=== PATIENT | male | born 1985 | race African-American/Black ===

== ENCOUNTER 2019-01-06 08:34 | Emergency (ER) | payer MEDICAID ==
[~2019-01-06] VITALS: Ht 180.3 cm; Wt 103.0 kg
[2019-01-06 10:47] LABS: BASOPHILS % 0.3 % (0.0-2.0); EOSINOPHILS % 1.9 % (0.0-5.0); HEMATOCRIT. 45.4 % (42.0-52.0); HEMOGLOBIN. 15.3 g/dL (14.0-18.0); LYMPHOCYTES % 18.4 % (20.0-50.0); MEAN CORPUSCULAR HEMOGLOBIN 31.5 pg (28.0-32.0); MEAN CORPUSCULAR VOLUME 93.2 fL (80.0-94.0); MEAN PLATELET VOLUME 8.5 fl (7.4-10.4); MONOCYTES % 9.6 % (2.0-8.0); NEUTROPHILS % 69.8 % (40.0-76.0); PLATELET 190 x1000/uL (130-400); RED BLOOD CELL COUNT 4.87 mill/uL (4.7-6.1); RED CELL DISTRIBUTION WIDTH 14.4 % (11.6-14.6)
[2019-01-06 11:57] LABS: CHLORIDE 104 mEq/L (98-107)
[2019-01-06 12:00] VITALS: BP 133/73
== END 2019-01-06 12:38 | disposition home or self-care (01) ==
LOC: ER 08:34
DX: R60.0 Localized edema (principal)
CPT/HCPCS: 36415; 71045; 80053; 83880; 84484; 85025; 93005; 93970; 99284; Z7610

== ENCOUNTER 2019-06-08 07:48 | Emergency (ER) | payer MEDICAID ==
[~2019-06-08] VITALS: Ht 180.3 cm; Wt 108.0 kg
[2019-06-08 08:55] LABS: EOSINOPHILS % 4.5 % (0.0-5.0); HEMATOCRIT. 45.7 % (42.0-52.0); HEMOGLOBIN. 15.3 g/dL (14.0-18.0); LYMPHOCYTES % 47.9 % (20.0-50.0); MEAN CORPUSCULAR HEMOGLOBIN 30.4 pg (28.0-32.0); MEAN CORPUSCULAR VOLUME 90.9 fL (80.0-94.0); MEAN PLATELET VOLUME 8.1 fl (7.4-10.4); MONOCYTES % 10.6 % (2.0-8.0); PLATELET 196 x1000/uL (130-400); RED BLOOD CELL COUNT 5.03 mill/uL (4.7-6.1); RED CELL DISTRIBUTION WIDTH 14.3 % (11.6-14.6)
[2019-06-08 09:05] LABS: CHLORIDE 108 mEq/L (98-107)
[2019-06-08 10:37] LABS: CLARITY URINE CLEAR (CLEAR); COLOR URINE YELLOW (YELLOW); KETONES URINE NEGATIVE (NEGATIVE); LEUKOCYTE ESTERASE URINE NEGATIVE (NEGATIVE); NITRITE URINE NEGATIVE (NEGATIVE); OCCULT BLOOD URINE NEGATIVE (NEGATIVE); PH URINE 6.5 (4.5-8.0); PROTEIN URINE NEGATIVE (NEGATIVE); SPECIFIC GRAVITY URINE 1.024 (1.005-1.030); UROBILINOGEN URINE 0.2 E.U./dL (0.2-1.0)
[2019-06-08 11:23] VITALS: BP 119/64
== END 2019-06-08 11:26 | disposition home or self-care (01) ==
LOC: ER 07:56
DX: S92.421A Displaced fracture of distal phalanx of right great toe, initial encounter for closed fracture (principal); R05 Cough; R06.02 Shortness of breath; R09.81 Nasal congestion; R06.09 Other forms of dyspnea; R53.83 Other fatigue; Z82.49 Family history of ischemic heart disease and other diseases of the circulatory system; W18.39XA Other fall on same level, initial encounter; Y93.89 Activity, other specified; Y92.89 Other specified places as the place of occurrence of the external cause; Y99.8 Other external cause status
CPT/HCPCS: 36415; 71045; 73630; 80053; 81003; 83880; 84484; 84550; 85025; 87804; 93005; 99284; Z7610

== ENCOUNTER 2019-07-20 07:36 | Emergency (ER) | payer MEDICAID ==
[~2019-07-20] VITALS: Ht 180.3 cm; Wt 108.0 kg
[2019-07-20 07:41] VITALS: BP 138/79
== END 2019-07-20 11:15 | disposition left against medical advice (07) ==
LOC: ER 07:41
DX: J06.9 Acute upper respiratory infection, unspecified (principal); Z53.21 Procedure and treatment not carried out due to patient leaving prior to being seen by health care provider

== ENCOUNTER 2019-08-01 04:42 | Emergency (ER) | payer MEDICAID ==
[~2019-08-01] VITALS: Ht 180.3 cm; Wt 115.0 kg
[2019-08-01 06:52] LABS: BASOPHILS % 1.1 % (0.0-2.0); EOSINOPHILS % 3.6 % (0.0-5.0); HEMATOCRIT. 43.7 % (42.0-52.0); HEMOGLOBIN. 14.8 g/dL (14.0-18.0); LYMPHOCYTES % 49.7 % (20.0-50.0); MEAN CORPUSCULAR VOLUME 91.5 fL (80.0-94.0); MEAN PLATELET VOLUME 7.9 fl (7.4-10.4); MONOCYTES % 11.9 % (2.0-8.0); NEUTROPHILS % 33.7 % (40.0-76.0); PLATELET 221 x1000/uL (130-400); RED BLOOD CELL COUNT 4.78 mill/uL (4.7-6.1); RED CELL DISTRIBUTION WIDTH 14.6 % (11.6-14.6)
[2019-08-01 06:58] LABS: CHLORIDE 108 mEq/L (98-107)
[2019-08-01] MEDS ORDERED: SODIUM CHLORIDE 0.9% 1,000 ML IV ONE (07:32)
[2019-08-01] MEDS ORDERED: KETOROLAC 30MG/ML VIAL IV STA (07:32)
[2019-08-01 10:08] LABS: *BENZODIAZEPINES SCREEN URINE NEGATIVE (NEGATIVE); *COCAINE SCREEN URINE NEGATIVE (NEGATIVE)
[2019-08-01 10:09] LABS: *AMPHETAMINES SCREEN URINE NEGATIVE (NEGATIVE); *BARBITURATES SCREEN URINE NEGATIVE (NEGATIVE); CANNABINOID URINE SCREEN NEGATIVE (NEGATIVE); METHADONE URINE SCREEN NEGATIVE (NEGATIVE); OPIATES URINE SCREEN NEGATIVE (NEGATIVE); PHENCYCLIDINE URINE SCREEN NEGATIVE (NEGATIVE)
[2019-08-01 10:55] VITALS: BP 107/55
== END 2019-08-01 10:57 | disposition home or self-care (01) ==
LOC: ER 04:42
DX: R07.89 Other chest pain (principal)
CPT/HCPCS: 36415; 71045; 80053; 80305; 83880; 84484; 85025; 93005; 99284; J7030

== ENCOUNTER 2021-01-08 04:47 | Inpatient (IN) | payer MEDICAID, OTHER ==
[~2021-01-08] VITALS: Ht 180.3 cm; Wt 104.0 kg
[2021-01-08] MEDS ORDERED: NITROGLYCERIN 0.4MG TABLET SL SL PRN (05:30)
[2021-01-08] MEDS ORDERED: ASPIRIN 81MG TABLET PO ONE (05:30)
[2021-01-08 05:50] LABS: BASOPHILS % 1.2 % (0.0-2.0); EOSINOPHILS % 5.5 % (0.0-5.0); HEMOGLOBIN. 15.2 g/dL (14.0-18.0); LYMPHOCYTES % 50.7 % (20.0-50.0); MEAN CORPUSCULAR HEMOGLOBIN 31.3 pg (28.0-32.0); MEAN CORPUSCULAR VOLUME 90.7 fL (80.0-94.0); MONOCYTES % 9.3 % (2.0-8.0); NEUTROPHILS % 33.3 % (40.0-76.0); PLATELET 200 x1000/uL (130-400); RED BLOOD CELL COUNT 4.85 mill/uL (4.7-6.1); RED CELL DISTRIBUTION WIDTH 13.6 % (11.6-14.6)
[2021-01-08 05:53] LABS: CHLORIDE 108 mEq/L (98-107)
[2021-01-08 08:18] VITALS: BP 131/77
[2021-01-08] MEDS ORDERED: ACETAMINOPHEN 325MG TABLET PO PRN (09:15)
[2021-01-08] MEDS ORDERED: CLONIDINE 0.1MG TABLET PO PRN (09:15)
[2021-01-08] MEDS ORDERED: IPRATROPIUM/ALBUTEROL 0.5-3(2.5)MG/3ML NEB HHN PRN (09:15)
[2021-01-08] MEDS ORDERED: ONDANSETRON HCL 4MG/2ML INJ IV PRN (09:15)
[2021-01-08] MEDS ORDERED: ENOXAPARIN 40MG/0.4ML SYR SUBCUT SCH (09:15)
[2021-01-08] MEDS ORDERED: DIPHENHYDRAMINE 50MG/ML VIAL IV PRN (09:15)
[2021-01-08] MEDS ORDERED: ENOXAPARIN 30MG/0.3ML SYR SUBCUT SCH (10:00)
== END 2021-01-08 08:52 | disposition left against medical advice (07) | DRG 203 ==
LOC: ER 04:47 → 5WST 06:26 → ENRESERV 07:55
PROVIDERS: ADMIT Internal Medicine; ATTEND Internal Medicine
DX: M94.0 Chondrocostal junction syndrome [Tietze] (principal); E87.8 Other disorders of electrolyte and fluid balance, not elsewhere classified; I10 Essential (primary) hypertension; Z53.29 Procedure and treatment not carried out because of patient's decision for other reasons; Z82.49 Family history of ischemic heart disease and other diseases of the circulatory system
CPT/HCPCS: 36415; 71045; 80053; 83880; 84484; 85025; 93005; 99285

== ENCOUNTER 2024-04-26 08:35 | Emergency (ER) | payer BC, OTHER ==
[~2024-04-26] VITALS: Ht 180.3 cm; Wt 124.0 kg
[2024-04-26 08:40] VITALS: O2SAT 100
[2024-04-26] MEDS ORDERED: IBUP-2029 MT (10:23)
[2024-04-26] MEDS: ACETAMINOPHEN 500MG TABLET PO ONE (10:34)
[2024-04-26] MEDS: KETOROLAC 30MG/ML VIAL IM ONE (10:35)
[2024-04-26 10:37] VITALS: BP 144/88; PULSE 81; RESP 17; TEMP 36.78072; O2SAT 100
== END 2024-04-26 10:38 ==
LOC: ER 08:35
DX: M54.9 Dorsalgia, unspecified (principal); Z82.49 Family history of ischemic heart disease and other diseases of the circulatory system
CPT/HCPCS: 99283; 96372; J1885